=== PATIENT | female | born 1965 | race Caucasian/White ===

== ENCOUNTER 2018-04-07 07:49 | Day surgery (SDC) | payer BC ==
[2018-04-03 13:41] VITALS: BMI 24.0
--- NOTE | 2018-04-07 09:06 | HP ---
Admitting History and Physical - Admission History of Present Illness: patient is a 53-year-old female with a past medical history of schizoaffective disorder. Patient reports a recent hospitalization in December at [facility] for anibal. Patients present for ect this will be her first ect. She reports significant depression, patient denies any suicidal or homicidal ideation, visual or auditory hallucination. Patient reports compliance with prescribed medication. Patient denies any recent illnesses. History Source: Patient Limitations to Obtaining History: No Limitations - Past Medical History ...LMP: 04/06/18 - Smoking History Smoking history: Former smoker Have you smoked in the past 12 months: No If you are a former smoker, when did you quit?: 2007 - Alcohol/Substance Use Hx Alcohol Use: Yes History of Substance Use: reports: None - Social History Usual Living Arrangement: Yes: With Spouse ADL: Independent History of Recent Travel: No Home Medications - Allergies Allergies/Adverse Reactions: Allergies Allergy/AdvReac Type Severity Reaction Status Date / Time No Known Drug Allergies Allergy Verified 04/03/18 13:15 - Home Medications Home Medications: Ambulatory Orders Aripiprazole [Abilify -] 5 mg PO HS 04/03/18 Clonazepam [Klonopin] 1 mg PO HS 04/03/18 Dextroamphetamine/Amphetamine [Adderall Xr 20 mg Capsule] 20 mg PO BID 04/03/18 Lamotrigine [Lamictal -] 100 mg PO HS 04/03/18 Family Disease History - Family Disease History Family History: Denies Review of Systems - Review of Systems Constitutional: reports: No Symptoms Eyes: reports: No Symptoms HENT: reports: No Symptoms Neck: reports: No Symptoms Cardiovascular: reports: No Symptoms Respiratory: reports: No Symptoms Gastrointestinal: reports: No Symptoms Genitourinary: reports: No Symptoms Musculoskeletal: reports: No Symptoms Integumentary: reports: No Symptoms Neurological: reports: No Symptoms Endocrine: reports: No Symptoms Hematology/Lymphatic: reports: No Symptoms Psychiatric: reports: No Symptoms Physical Examination Vital Signs: Vital Signs Temperature 97.7 F 04/07/18 08:30 Pulse Rate 71 04/07/18 08:30 Respiratory Rate 20 04/07/18 08:30 Blood Pressure 111/69 04/07/18 08:30 O2 Sat by Pulse Oximetry (%) 100 04/07/18 08:30 Constitutional: Yes: Well Nourished, No Distress, Calm Eyes: Yes: WNL, Conjunctiva Clear, EOM Intact HENT: Yes: WNL, Atraumatic, Normocephalic Neck: Yes: WNL, Supple, Trachea Midline Cardiovascular: Yes: WNL, Regular Rate and Rhythm, S1, S2 Respiratory: Yes: WNL, Regular, CTA Bilaterally Gastrointestinal: Yes: WNL, Normal Bowel Sounds, Soft ...Rectal Exam: Yes: Deferred Renal/: Yes: WNL Musculoskeletal: Yes: WNL Extremities: Yes: WNL Edema: No Peripheral Pulses WNL: Yes Peripheral Pulses: Left Radial: 4+, Right Radial: 4+, Left Doralis Pedis: 3+, Right Dorsalis Pedis: 3+, Left Femoral: 3+, Right Femoral: 3+ Integumentary: Yes: WNL Neurological: Yes: WNL, Alert, Oriented ...Motor Strength: WNL Psychiatric: Yes: WNL, Alert, Oriented Labs: 02/07/2018 Imaging - Results EKG: Image Reviewed, Other (nsr) Assessment/Plan patient is a 53 y/o female, that presents for ect labs and ekg reviewed patient is medically optimized for procedure
[2018-04-07] MEDS ORDERED: KETAMINE HCL 500 MG/10 ML VIAL ONE (09:44)
[2018-04-07 10:46] VITALS: TEMP 98.4
[2018-04-07 11:25] VITALS: BP 112/70; PULSE 76
--- NOTE | 2018-04-07 13:59 | EKG ---
Test Reason : Blood Pressure : / mmHG Vent. Rate : 073 BPM Atrial Rate : 073 BPM P-R Int : 148 ms QRS Dur : 084 ms QT Int : 404 ms P-R-T Axes : 071 069 067 degrees QTc Int : 445 ms NORMAL SINUS RHYTHM CANNOT RULE OUT ANTERIOR INFARCT , AGE UNDETERMINED ABNORMAL ECG NO PREVIOUS ECGS AVAILABLE Confirmed by MEDHAT JETT MD ([id number]) on 04/07/2018 1:59:42 PM Referred By: Chemo Hartman Confirmed By:MEDHAT JETT MD
== END 2018-04-07 11:15 | disposition home or self-care (01) ==
LOC: FECT 07:49
PROVIDERS: ATTEND Psychiatry & Neurology Psychiatry
PROC: GZB4ZZZ Other Electroconvulsive Therapy (ICD-10-PCS; principal; 2018-04-07 08:30)
DX: F31.32 Bipolar disorder, current episode depressed, moderate (principal)
CPT/HCPCS: 84703; 90870; 93005; 94760

== ENCOUNTER 2018-04-10 05:44 | Day surgery (SDC) | payer BC ==
[2018-04-03 13:58] VITALS: BMI 24.0
[2018-04-10] MEDS ORDERED: KETAMINE HCL 500 MG/10 ML VIAL ONE (07:09)
[2018-04-10 08:13] VITALS: PULSE 74; TEMP 98.2
[2018-04-10 08:37] VITALS: BP 112/72
== END 2018-04-10 08:41 | disposition home or self-care (01) ==
LOC: FECT 05:44
PROVIDERS: ATTEND Psychiatry & Neurology Psychiatry
PROC: GZB4ZZZ Other Electroconvulsive Therapy (ICD-10-PCS; principal; 2018-04-10 07:30)
DX: F31.32 Bipolar disorder, current episode depressed, moderate (principal)
CPT/HCPCS: 90870; 94760

== ENCOUNTER 2018-04-14 05:37 | Day surgery (SDC) | payer BC ==
[2018-04-03 14:18] VITALS: BMI 24.0
[2018-04-14] MEDS ORDERED: KETAMINE HCL 500 MG/10 ML VIAL ONE (06:57)
[2018-04-14 08:09] VITALS: BP 110/65; PULSE 69; TEMP 98
== END 2018-04-14 08:10 | disposition home or self-care (01) ==
LOC: FECT 05:37
PROVIDERS: ATTEND Psychiatry & Neurology Psychiatry
PROC: GZB4ZZZ Other Electroconvulsive Therapy (ICD-10-PCS; principal; 2018-04-14 07:00)
DX: F31.32 Bipolar disorder, current episode depressed, moderate (principal)
CPT/HCPCS: 84703; 90870; 94760

== ENCOUNTER 2018-04-17 05:40 | Day surgery (SDC) | payer BC ==
[2018-04-05 09:29] VITALS: BMI 24.0
[2018-04-17] MEDS ORDERED: KETAMINE HCL 500 MG/10 ML VIAL ONE (07:17)
[2018-04-17 09:11] VITALS: BP 121/70; PULSE 84; TEMP 97.7
== END 2018-04-17 09:05 | disposition home or self-care (01) ==
LOC: FECT 05:40
PROVIDERS: ATTEND Psychiatry & Neurology Psychiatry
PROC: GZB4ZZZ Other Electroconvulsive Therapy (ICD-10-PCS; principal; 2018-04-17 07:00)
DX: F31.32 Bipolar disorder, current episode depressed, moderate (principal)
CPT/HCPCS: 90870; 94760

== ENCOUNTER → 2018-04-19 | Day surgery (SDC) | payer BC ==
[2018-04-05 09:43] VITALS: BMI 24.0
[~2018-04-19] MED LIST: KETAMINE HCL 500 MG/10 ML VIAL ONE
[2018-04-19 09:02] VITALS: BP 106/63; PULSE 60; TEMP 98.5
== END | disposition home or self-care (01) ==
LOC: FECT 05:44
PROVIDERS: ATTEND Psychiatry & Neurology Psychiatry
PROC: GZB4ZZZ Other Electroconvulsive Therapy (ICD-10-PCS; principal; 2018-04-19 07:30)
DX: F31.32 Bipolar disorder, current episode depressed, moderate (principal)
CPT/HCPCS: 84703; 90870; 94760

== ENCOUNTER 2018-04-24 05:42 | Day surgery (SDC) | payer BC ==
[2018-04-10 11:21] VITALS: BMI 24.0
[2018-04-24] MEDS ORDERED: KETAMINE HCL 500 MG/10 ML VIAL ONE (07:12)
[2018-04-24 08:10] VITALS: PULSE 88; TEMP 97.6
[2018-04-24 10:00] VITALS: BP 123/87
== END 2018-04-24 08:30 | disposition home or self-care (01) ==
LOC: FECT 05:42
PROVIDERS: ATTEND Psychiatry & Neurology Psychiatry
PROC: GZB4ZZZ Other Electroconvulsive Therapy (ICD-10-PCS; principal; 2018-04-24 07:00)
DX: F31.32 Bipolar disorder, current episode depressed, moderate (principal)
CPT/HCPCS: 84703; 90870; 94760

== ENCOUNTER 2018-04-26 05:38 | Day surgery (SDC) | payer BC ==
[2018-04-12 07:19] VITALS: BMI 24.0
[2018-04-26 06:32] VITALS: TEMP 98
[2018-04-26] MEDS ORDERED: KETAMINE HCL 500 MG/10 ML VIAL ONE (07:01)
[2018-04-26 08:25] VITALS: BP 118/74; PULSE 82
== END 2018-04-26 08:30 | disposition home or self-care (01) ==
LOC: FECT 05:38
PROVIDERS: ATTEND Psychiatry & Neurology Psychiatry
PROC: GZB4ZZZ Other Electroconvulsive Therapy (ICD-10-PCS; principal; 2018-04-26 07:00)
DX: F31.9 Bipolar disorder, unspecified (principal)
CPT/HCPCS: 90870; 94760

== ENCOUNTER 2018-04-28 05:43 | Day surgery (SDC) | payer BC ==
[2018-04-12 07:26] VITALS: BMI 24.0
[2018-04-28 06:34] VITALS: TEMP 98.4
[2018-04-28] MEDS ORDERED: KETAMINE HCL 500 MG/10 ML VIAL ONE (06:51)
[2018-04-28 08:33] VITALS: BP 133/83; PULSE 86
== END 2018-04-28 09:00 | disposition home or self-care (01) ==
LOC: FECT 05:43
PROVIDERS: ATTEND Psychiatry & Neurology Psychiatry
PROC: GZB4ZZZ Other Electroconvulsive Therapy (ICD-10-PCS; principal; 2018-04-28 07:00)
DX: F31.32 Bipolar disorder, current episode depressed, moderate (principal)
CPT/HCPCS: 84703; 90870; 94760

== ENCOUNTER 2018-05-03 05:42 | Day surgery (SDC) | payer BC ==
[2018-04-17 10:12] VITALS: BMI 24.0
[2018-05-03] MEDS ORDERED: KETAMINE HCL 500 MG/10 ML VIAL ONE (07:52)
[2018-05-03 09:06] VITALS: TEMP 97.7
[2018-05-03 09:34] VITALS: BP 108/69; PULSE 72
== END 2018-05-03 09:36 | disposition home or self-care (01) ==
LOC: FECT 05:42
PROVIDERS: ATTEND Psychiatry & Neurology Psychiatry
PROC: GZB4ZZZ Other Electroconvulsive Therapy (ICD-10-PCS; principal; 2018-05-03 07:00)
DX: F31.9 Bipolar disorder, unspecified (principal)
CPT/HCPCS: 84703; 90870; 94760

== ENCOUNTER 2018-05-05 05:44 | Day surgery (SDC) | payer BC ==
[2018-04-17 10:08] VITALS: BMI 24.0
[2018-05-05] MEDS ORDERED: KETAMINE HCL 500 MG/10 ML VIAL ONE (06:59)
[2018-05-05 08:27] VITALS: PULSE 82; TEMP 98.4
--- NOTE | 2018-05-05 08:42 | HP ---
CHIEF COMPLAINT: Depression PCP: Surrey Ryan HISTORY OF PRESENT ILLNESS: This is a 53-year-old female with a history of bipolar disorder being treated for depression with ECT. She feels that her symptoms are improving with treatment. PAST MEDICAL HISTORY: None Social History: , lives with . 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 Smoking: Former smoker, quit 2007. Alcohol: None Drugs: None Allergies No Known Drug Allergies Allergy (Verified 04/17/18 07:02) HOME MEDICATIONS: Home Medications Medication Instructions Recorded Aripiprazole [Abilify -] 5 mg PO HS 04/03/18 Clonazepam [Klonopin] 1 mg PO HS 04/03/18 Dextroamphetamine/Amphetamine 20 mg PO BID 04/03/18 [Adderall Xr 20 mg Capsule] Lamotrigine [LaMICtal -] 100 mg PO HS 04/03/18 Ibuprofen [Advil -] 800 mg PO TID 04/26/18 REVIEW OF SYSTEMS CONSTITUTIONAL: Absent: fever, chills, diaphoresis, generalized weakness, malaise, loss of appetite, weight change HEENT: Absent: rhinorrhea, nasal congestion, throat pain, throat swelling, difficulty swallowing, mouth swelling, ear pain, eye pain, visual changes CARDIOVASCULAR: Absent: chest pain, syncope, palpitations, irregular heart rate, lightheadedness , peripheral edema RESPIRATORY: Absent: cough, shortness of breath, dyspnea with exertion, orthopnea, wheezing, stridor, hemoptysis GASTROINTESTINAL: Absent: abdominal pain, abdominal distension, nausea, vomiting, diarrhea, constipation, melena, hematochezia GENITOURINARY: Absent: dysuria, frequency, urgency, hesitancy, hematuria, flank pain, genital pain MUSCULOSKELETAL: Absent: myalgia, arthralgia, joint swelling, back pain, neck pain SKIN: Absent: rash, itching, pallor HEMATOLOGIC/IMMUNOLOGIC: Absent: easy bleeding, easy bruising, lymphadenopathy, frequent infections ENDOCRINE: Absent: unexplained weight gain, unexplained weight loss, heat intolerance, cold intolerance NEUROLOGIC: Absent: headache, focal weakness or paresthesias, dizziness, unsteady gait, seizure, mental status changes, bladder or bowel incontinence PSYCHIATRIC: Depression Absent: no suicidal or homicidal ideation, hallucinations. PHYSICAL EXAMINATION Vital Signs - 24 hr 05/05/18 05/05/18 05/05/18 06:24 07:20 07:25 Temperature 97.7 F Pulse Rate 70 76 74 Respiratory 18 16 22 H Rate Blood Pressure 103/65 116/66 107/60 O2 Sat by Pulse 100 97 Oximetry (%) 05/05/18 05/05/18 05/05/18 07:30 07:35 07:50 Temperature Pulse Rate 79 79 78 Respiratory 21 H 20 11 Rate Blood Pressure 110/71 120/68 124/70 O2 Sat by Pulse 97 100 100 Oximetry (%) 05/05/18 05/05/18 08:03 08:19 Temperature 98.4 F Pulse Rate 78 82 Respiratory 11 16 Rate Blood Pressure 118/79 120/78 O2 Sat by Pulse 100 Oximetry (%) GENERAL: Awake, alert, and fully oriented, in no acute distress. HEAD: Normal with no signs of trauma. EYES: Pupils equal, round and reactive to light, extraocular movements intact, sclera anicteric, conjunctiva clear. No lid lag. EARS, NOSE, THROAT: Ears normal, nares patent, oropharynx clear without exudates. Moist mucous membranes. NECK: Normal range of motion, supple without lymphadenopathy, JVD, or masses. LUNGS: Breath sounds equal, clear to auscultation bilaterally. No wheezes, and no crackles. No accessory muscle use. HEART: Regular rate and rhythm, normal S1 and S2 without murmur, rub or gallop. ABDOMEN: Soft, nontender, not distended, normoactive bowel sounds, no guarding, no rebound, no masses. No hepatomegaly or splenomegaly. MUSCULOSKELETAL: Normal range of motion at all joints. No bony deformities or tenderness. No CVA tenderness. UPPER EXTREMITIES: 2+ pulses, warm, well-perfused. No cyanosis. No clubbing. No peripheral edema. LOWER EXTREMITIES: 2+ pulses, warm, well-perfused. No calf tenderness. No peripheral edema. NEUROLOGICAL: Cranial nerves II-XII intact. Normal speech. Normal gait. PSYCHIATRIC: Cooperative. Good eye contact. Appropriate mood and affect. SKIN: Warm, dry, normal turgor, no rashes or lesions noted, normal capillary refill. ASSESSMENT/PLAN: 53-year-old female with BPD being treated for depression with ECT. No recent medication changes. No reported problems with anesthesia. No cardiac history. Revised Cardiac Risk for Pre-Operative Risk: 0 points, 0.4% risk of major cardiac event. No neurosurgical history, no history of trauma. ECT is a low risk procedure. The relative benefits of the planned procedure outweigh the relative risks for this patient at this time. Visit type - Emergency Visit Emergency Visit: No - New Patient This patient is new to me today: Yes Date on this admission: 05/05/18 - Critical Care Critical Care patient: No
[2018-05-05] MEDS ORDERED: ONDANSETRON 4 MG/2 ML VIAL IVPUSH PRN (08:52)
[2018-05-05 08:53] VITALS: BP 112/59
[2018-05-05] MEDS ORDERED: LACTATED RINGERS SOLUTION 1,000 ML IV SCH (09:00)
== END 2018-05-05 08:50 | disposition home or self-care (01) ==
LOC: FECT 05:44
PROVIDERS: ATTEND Psychiatry & Neurology Psychiatry
PROC: GZB4ZZZ Other Electroconvulsive Therapy (ICD-10-PCS; principal; 2018-05-05 07:30)
DX: F31.9 Bipolar disorder, unspecified (principal)
CPT/HCPCS: 90870; 94760

== ENCOUNTER 2018-05-10 06:09 | Day surgery (SDC) | payer BC ==
[2018-05-05 15:31] VITALS: BMI 24.0
[2018-05-10] MEDS ORDERED: KETAMINE HCL 500 MG/10 ML VIAL ONE (07:16)
[2018-05-10 08:23] VITALS: TEMP 97.6
[2018-05-10 09:08] VITALS: BP 123/70; PULSE 76
== END 2018-05-10 09:15 | disposition home or self-care (01) ==
LOC: FECT 06:09
PROVIDERS: ATTEND Psychiatry & Neurology Psychiatry
PROC: GZB4ZZZ Other Electroconvulsive Therapy (ICD-10-PCS; principal; 2018-05-10 07:15)
DX: F31.9 Bipolar disorder, unspecified (principal)
CPT/HCPCS: 84703; 90870; 94760

== ENCOUNTER 2018-05-12 05:46 | Day surgery (SDC) | payer BC ==
[2018-05-12 06:48] VITALS: BMI 24.0
[2018-05-12] MEDS ORDERED: KETAMINE HCL 500 MG/10 ML VIAL ONE (07:04)
[2018-05-12 08:02] VITALS: PULSE 85
[2018-05-12 08:09] VITALS: TEMP 97.7
[2018-05-12 08:47] VITALS: BP 121/74
== END 2018-05-12 08:40 | disposition home or self-care (01) ==
LOC: FECT 05:46
PROVIDERS: ATTEND Psychiatry & Neurology Psychiatry
PROC: GZB4ZZZ Other Electroconvulsive Therapy (ICD-10-PCS; principal; 2018-05-12 07:30)
DX: F31.9 Bipolar disorder, unspecified (principal)
CPT/HCPCS: 90870; 94760

== ENCOUNTER 2018-05-16 05:45 | Day surgery (SDC) | payer BC ==
[2018-05-16 06:31] VITALS: BMI 24.0
[2018-05-16] MEDS ORDERED: KETAMINE HCL 500 MG/10 ML VIAL ONE (07:09)
[2018-05-16 08:13] VITALS: TEMP 97.5
[2018-05-16 08:40] VITALS: BP 107/67; PULSE 76
== END 2018-05-16 08:45 | disposition home or self-care (01) ==
LOC: FECT 05:45
PROVIDERS: ATTEND Psychiatry & Neurology Psychiatry
PROC: GZB4ZZZ Other Electroconvulsive Therapy (ICD-10-PCS; principal; 2018-05-16 08:30)
DX: F31.9 Bipolar disorder, unspecified (principal)
CPT/HCPCS: 84703; 90870; 94760

== ENCOUNTER 2018-05-19 05:41 | Day surgery (SDC) | payer BC ==
[2018-05-19 06:56] VITALS: TEMP 97.8; BMI 24.0
[2018-05-19] MEDS ORDERED: KETAMINE HCL 500 MG/10 ML VIAL ONE (07:11)
[2018-05-19 08:38] VITALS: BP 117/65; PULSE 78
[2018-05-19] MEDS ORDERED: ACETAMINOPHEN 325 MG TABLET (FP) PO PRN (08:38)
[2018-05-19] MEDS ORDERED: ONDANSETRON 4 MG/2 ML VIAL IVPUSH PRN (08:38)
[2018-05-19] MEDS ORDERED: LACTATED RINGERS SOLUTION 1,000 ML IV SCH (08:45)
== END 2018-05-19 08:49 | disposition home or self-care (01) ==
LOC: FECT 05:41
PROVIDERS: ATTEND Psychiatry & Neurology Psychiatry
PROC: GZB4ZZZ Other Electroconvulsive Therapy (ICD-10-PCS; principal; 2018-05-19 07:00)
DX: F31.9 Bipolar disorder, unspecified (principal)
CPT/HCPCS: 90870; 94760

== ENCOUNTER 2018-05-31 05:56 | Day surgery (SDC) | payer BC ==
[2018-05-29 12:10] VITALS: BMI 24.0
[2018-05-31 06:31] VITALS: TEMP 97.8
[2018-05-31] MEDS ORDERED: ONDANSETRON 4 MG/2 ML VIAL IVPUSH PRN (07:25)
[2018-05-31] MEDS ORDERED: LACTATED RINGERS SOLUTION 1,000 ML IV SCH (07:30)
[2018-05-31 08:36] VITALS: BP 111/71; PULSE 81
== END 2018-05-31 08:50 | disposition home or self-care (01) ==
LOC: FECT 05:56
PROVIDERS: ATTEND Psychiatry & Neurology Psychiatry
PROC: GZB4ZZZ Other Electroconvulsive Therapy (ICD-10-PCS; principal; 2018-05-31 08:00)
DX: F31.9 Bipolar disorder, unspecified (principal)
CPT/HCPCS: 90870; 94760

== ENCOUNTER 2018-06-02 05:44 | Day surgery (SDC) | payer BC ==
[2018-06-02 06:42] VITALS: TEMP 97.7; BMI 24.0
[2018-06-02] MEDS ORDERED: KETAMINE HCL 500 MG/10 ML VIAL ONE (07:21)
[2018-06-02 08:21] VITALS: PULSE 79
--- NOTE | 2018-06-02 08:52 | HP ---
CHIEF COMPLAINT: Bipolar Disorder PCP: Dr. Quintana [place] Primary Psychiatrist: Dr. Kelly [place] HISTORY OF PRESENT ILLNESS: 53 year-old female with a PMH significant for bipolar disorder. Patient began ECT in March 2018. She presents today for ECT. Recent Events: * None reported PAST MEDICAL HISTORY: Bipolar disorder PAST SURGICAL HISTORY: C-sections x 2 Appendectomy Allergies No Known Drug Allergies Allergy (Verified 05/29/18 06:49) HOME MEDICATIONS: Home Medications Medication Instructions Recorded Aripiprazole [Abilify -] 5 mg PO HS 04/03/18 Clonazepam [Klonopin] 1 mg PO HS 04/03/18 Dextroamphetamine/Amphetamine 20 mg PO BID 04/03/18 [Adderall Xr 20 mg Capsule] Lamotrigine [LaMICtal -] 100 mg PO HS 04/03/18 Ibuprofen [Advil -] 800 mg PO TID 04/26/18 Turmeric [Curcumin] 250 gm MC DAILY 05/31/18 REVIEW OF SYSTEMS CONSTITUTIONAL: Absent: fever, chills, diaphoresis, generalized weakness, malaise, loss of appetite, weight change HEENT: Absent: rhinorrhea, nasal congestion, throat pain, throat swelling, difficulty swallowing, mouth swelling, ear pain, eye pain, visual changes CARDIOVASCULAR: Absent: chest pain, syncope, palpitations, irregular heart rate, lightheadedness , peripheral edema RESPIRATORY: Absent: cough, shortness of breath, dyspnea with exertion, orthopnea, wheezing, stridor, hemoptysis GASTROINTESTINAL: Absent: abdominal pain, abdominal distension, nausea, vomiting, diarrhea, constipation, melena, hematochezia GENITOURINARY: Absent: dysuria, frequency, urgency, hesitancy, hematuria, flank pain, genital pain MUSCULOSKELETAL: Absent: myalgia, arthralgia, joint swelling, back pain, neck pain SKIN: Absent: rash, itching, pallor HEMATOLOGIC/IMMUNOLOGIC: Absent: easy bleeding, easy bruising, lymphadenopathy, frequent infections ENDOCRINE: Absent: unexplained weight gain, unexplained weight loss, heat intolerance, cold intolerance NEUROLOGIC: Absent: headache, focal weakness or paresthesias, dizziness, unsteady gait, seizure, mental status changes, bladder or bowel incontinence PHYSICAL EXAMINATION Vital Signs - 24 hr 06/02/18 06/02/18 06/02/18 06:35 07:43 07:45 Temperature 97.7 F Pulse Rate 67 70 76 Respiratory 16 20 22 H Rate Blood Pressure 115/84 111/60 107/69 O2 Sat by Pulse 100 99 98 Oximetry (%) GENERAL: Awake, alert, and fully oriented, in no acute distress. HEAD: Normal with no signs of trauma. EYES: Pupils equal, round and reactive to light, sclera anicteric, conjunctiva clear. LUNGS: Breath sounds equal, clear to auscultation bilaterally. No wheezes, and no crackles. No accessory muscle use. HEART: Regular rate and rhythm, normal S1 and S2 ABDOMEN: Soft, nontender, not distended MUSCULOSKELETAL: Normal range of motion at all joints. No bony deformities or tenderness. No CVA tenderness. UPPER EXTREMITIES: 2+ pulses, warm, well-perfused. No cyanosis. No clubbing. No peripheral edema. LOWER EXTREMITIES: 2+ pulses, warm, well-perfused. No calf tenderness. No peripheral edema. NEUROLOGICAL: Cranial nerves II-XII intact. Normal speech. Laboratory Results - last 24 hr 06/02/18 06:32 Urine HCG, Qual Negative ASSESSMENT/PLAN: 53 year-old female with a PMH significant for bipolar disorder. She presents today for ECT. Cardiac --no cardiac history --Revised Cardiac Risk Index for Pre-Operative Risk: 0 points, 0.4% risk of major cardiac event Pulmonary --no pulmonary history Neurological --no neurological or neurosurgical history; no history of trauma Anesthesia --no reported problems with anesthesia ECT is a low risk procedure. The relative benefits of the planned procedure outweigh the relative risks for this patient at this time. Visit type - Emergency Visit Emergency Visit: No - New Patient This patient is new to me today: Yes Date on this admission: 06/05/18 - Critical Care Critical Care patient: No
[2018-06-02 09:09] VITALS: BP 118/72
== END 2018-06-02 09:00 | disposition home or self-care (01) ==
LOC: FECT 05:44
PROVIDERS: ATTEND Psychiatry & Neurology Psychiatry
PROC: GZB4ZZZ Other Electroconvulsive Therapy (ICD-10-PCS; principal; 2018-06-02 07:30)
DX: F31.89 Other bipolar disorder (principal)
CPT/HCPCS: 84703; 90870; 94760

== ENCOUNTER 2018-06-06 05:49 | Day surgery (SDC) | payer BC ==
[2018-06-06 06:40] VITALS: BMI 24.0
[2018-06-06] MEDS ORDERED: KETAMINE HCL SYRINGES 150 MG/3 ML VIAL ONE (07:06)
[2018-06-06 08:16] VITALS: TEMP 97.6
[2018-06-06 08:48] VITALS: BP 117/81; PULSE 81
== END 2018-06-06 08:54 | disposition home or self-care (01) ==
LOC: FECT 05:49
PROVIDERS: ATTEND Psychiatry & Neurology Psychiatry
PROC: GZB4ZZZ Other Electroconvulsive Therapy (ICD-10-PCS; principal; 2018-06-06 07:30)
DX: F31.89 Other bipolar disorder (principal)
CPT/HCPCS: 84703; 90870; 94760

== ENCOUNTER 2018-06-09 05:49 | Day surgery (SDC) | payer BC ==
[2018-06-09 06:36] VITALS: BMI 24.0
[2018-06-09] MEDS ORDERED: KETAMINE HCL SYRINGES 150 MG/3 ML VIAL ONE (06:59)
[2018-06-09] MEDS ORDERED: LACTATED RINGERS SOLUTION 1,000 ML IV SCH (07:45)
[2018-06-09] MEDS ORDERED: ACETAMINOPHEN 325 MG TABLET (FP) PO PRN (07:45)
[2018-06-09] MEDS ORDERED: ONDANSETRON 4 MG/2 ML VIAL IVPUSH PRN (07:45)
[2018-06-09 08:27] VITALS: TEMP 98
[2018-06-09 08:28] VITALS: BP 122/72; PULSE 87
== END 2018-06-09 08:55 | disposition home or self-care (01) ==
LOC: FECT 05:49
PROVIDERS: ATTEND Psychiatry & Neurology Psychiatry
PROC: GZB4ZZZ Other Electroconvulsive Therapy (ICD-10-PCS; principal; 2018-06-09 07:30)
DX: F31.32 Bipolar disorder, current episode depressed, moderate (principal)
CPT/HCPCS: 90870; 94760

== ENCOUNTER 2018-06-13 05:45 | Day surgery (SDC) | payer BC ==
[2018-06-09 17:28] VITALS: BMI 24.0
[2018-06-13] MEDS ORDERED: ONDANSETRON 4 MG/2 ML VIAL IVPUSH PRN (06:41)
[2018-06-13 08:27] VITALS: TEMP 97.5
[2018-06-13 08:49] VITALS: BP 121/79; PULSE 71
== END 2018-06-13 08:45 | disposition home or self-care (01) ==
LOC: FECT 05:45
PROVIDERS: ATTEND Psychiatry & Neurology Psychiatry
PROC: GZB4ZZZ Other Electroconvulsive Therapy (ICD-10-PCS; principal; 2018-06-13 08:00)
DX: F31.89 Other bipolar disorder (principal)
CPT/HCPCS: 84703; 90870; 94760

== ENCOUNTER 2018-06-16 05:36 | Day surgery (SDC) | payer BC ==
[2018-06-09 17:31] VITALS: BMI 24.0
[2018-06-16] MEDS ORDERED: KETAMINE HCL SYRINGES 150 MG/3 ML VIAL ONE (06:58)
[2018-06-16 07:59] VITALS: TEMP 97.9
[2018-06-16 08:37] VITALS: BP 106/78; PULSE 78
== END 2018-06-16 09:17 | disposition home or self-care (01) ==
LOC: FECT 05:36
PROVIDERS: ATTEND Psychiatry & Neurology Psychiatry
PROC: GZB4ZZZ Other Electroconvulsive Therapy (ICD-10-PCS; principal; 2018-06-16 07:15)
DX: F31.89 Other bipolar disorder (principal)
CPT/HCPCS: 90870; 94760

== ENCOUNTER 2018-06-19 05:52 | Day surgery (SDC) | payer BC ==
[2018-06-19 06:58] VITALS: TEMP 97.8; BMI 24.0
[2018-06-19] MEDS ORDERED: REFRIGERATED ANITBIOTICS ONE ×2 (07:28→07:43)
[2018-06-19] MEDS ORDERED: KETAMINE HCL 500 MG/10 ML VIAL ONE (07:40)
[2018-06-19 08:58] VITALS: BP 120/72; PULSE 79
== END 2018-06-19 08:58 | disposition home or self-care (01) ==
LOC: FECT 05:52
PROVIDERS: ATTEND Psychiatry & Neurology Psychiatry
PROC: GZB4ZZZ Other Electroconvulsive Therapy (ICD-10-PCS; principal; 2018-06-19 09:00)
DX: F31.62 Bipolar disorder, current episode mixed, moderate (principal)
CPT/HCPCS: 84703; 90870; 94760

== ENCOUNTER 2018-06-23 05:43 | Day surgery (SDC) | payer BC ==
[2018-06-23 06:46] VITALS: TEMP 98.1; BMI 24.0
[2018-06-23] MEDS ORDERED: KETAMINE HCL SYRINGES 150 MG/3 ML VIAL ONE (06:57)
[2018-06-23 08:45] VITALS: BP 118/75; PULSE 79
== END 2018-06-23 08:35 | disposition home or self-care (01) ==
LOC: FECT 05:43
PROVIDERS: ATTEND Psychiatry & Neurology Psychiatry
PROC: GZB4ZZZ Other Electroconvulsive Therapy (ICD-10-PCS; principal; 2018-06-23 07:15)
DX: F31.62 Bipolar disorder, current episode mixed, moderate (principal)
CPT/HCPCS: 84703; 90870; 94760

== ENCOUNTER 2018-06-26 06:03 | Day surgery (SDC) | payer BC ==
[2018-06-26 06:40] VITALS: BMI 24.9
[2018-06-26] MEDS ORDERED: KETAMINE HCL 500 MG/10 ML VIAL ONE (07:12)
[2018-06-26] MEDS ORDERED: ACETAMINOPHEN 500 MG TABLET (FP) PO PRN (07:35)
[2018-06-26] MEDS ORDERED: PROMETHAZINE HCL 25 MG/1 ML VIAL IVPUSH PRN (07:35)
[2018-06-26] MEDS ORDERED: LACTATED RINGERS SOLUTION 1,000 ML IV SCH (07:45)
[2018-06-26 08:18] VITALS: TEMP 98.4
[2018-06-26 08:36] VITALS: BP 122/76; PULSE 74
== END 2018-06-26 09:15 | disposition home or self-care (01) ==
LOC: FECT 06:03
PROVIDERS: ATTEND Psychiatry & Neurology Psychiatry
PROC: GZB4ZZZ Other Electroconvulsive Therapy (ICD-10-PCS; principal; 2018-06-26 07:45)
DX: F31.62 Bipolar disorder, current episode mixed, moderate (principal)
CPT/HCPCS: 90870; 94760

== ENCOUNTER 2018-06-29 05:54 | Day surgery (SDC) | payer BC ==
[2018-06-26 08:23] VITALS: BMI 24.9
[2018-06-29 06:47] VITALS: TEMP 98
--- NOTE | 2018-06-29 07:52 | HP ---
CHIEF COMPLAINT: Bipolar Disorder PCP: Dr. Quintana [place] Primary Psychiatrist: Dr. Kelly [place] HISTORY OF PRESENT ILLNESS: 53 year-old female with a PMH significant for bipolar disorder. Patient began ECT in March 2018. She presents today for ECT. Recent Events: * None reported PAST MEDICAL HISTORY: Bipolar disorder PAST SURGICAL HISTORY: C-sections x 2 Appendectomy Allergies No Known Drug Allergies Allergy (Verified 06/26/18 08:17) HOME MEDICATIONS: Home Medications Medication Instructions Recorded Aripiprazole [Abilify -] 5 mg PO HS 04/03/18 Clonazepam [Klonopin] 1 mg PO HS 04/03/18 Dextroamphetamine/Amphetamine 20 mg PO BID 04/03/18 [Adderall Xr 20 mg Capsule] Lamotrigine [LaMICtal -] 100 mg PO HS 04/03/18 Ibuprofen [Advil -] 600 mg PO HS 04/26/18 Turmeric [Curcumin] 250 gm MC HS 05/31/18 REVIEW OF SYSTEMS CONSTITUTIONAL: Absent: fever, chills, diaphoresis, generalized weakness, malaise, loss of appetite, weight change HEENT: Absent: rhinorrhea, nasal congestion, throat pain, throat swelling, difficulty swallowing, mouth swelling, ear pain, eye pain, visual changes CARDIOVASCULAR: Absent: chest pain, syncope, palpitations, irregular heart rate, lightheadedness , peripheral edema RESPIRATORY: Absent: cough, shortness of breath, dyspnea with exertion, orthopnea, wheezing, stridor, hemoptysis GASTROINTESTINAL: Absent: abdominal pain, abdominal distension, nausea, vomiting, diarrhea, constipation, melena, hematochezia GENITOURINARY: Absent: dysuria, frequency, urgency, hesitancy, hematuria, flank pain, genital pain MUSCULOSKELETAL: Absent: myalgia, arthralgia, joint swelling, back pain, neck pain SKIN: Absent: rash, itching, pallor HEMATOLOGIC/IMMUNOLOGIC: Absent: easy bleeding, easy bruising, lymphadenopathy, frequent infections ENDOCRINE: Absent: unexplained weight gain, unexplained weight loss, heat intolerance, cold intolerance NEUROLOGIC: Absent: headache, focal weakness or paresthesias, dizziness, unsteady gait, seizure, mental status changes, bladder or bowel incontinence PHYSICAL EXAMINATION Vital Signs - 24 hr 06/29/18 06/29/18 06/29/18 06:44 07:17 07:23 Temperature 98.0 F Pulse Rate 86 88 89 Respiratory 18 21 H 18 Rate Blood Pressure 91/57 L 140/86 119/67 O2 Sat by Pulse 98 98 96 Oximetry (%) 06/29/18 06/29/18 06/29/18 07:27 07:33 07:40 Temperature 98.0 F Pulse Rate 90 85 85 Respiratory 18 16 16 Rate Blood Pressure 119/72 116/71 116/71 O2 Sat by Pulse 97 97 Oximetry (%) GENERAL: Awake, alert, and fully oriented, in no acute distress. HEAD: Normal with no signs of trauma. EYES: Pupils equal, round and reactive to light, sclera anicteric, conjunctiva clear. LUNGS: Breath sounds equal, clear to auscultation bilaterally. No wheezes, and no crackles. No accessory muscle use. HEART: Regular rate and rhythm, normal S1 and S2 ABDOMEN: Soft, nontender, not distended MUSCULOSKELETAL: Normal range of motion at all joints. No bony deformities or tenderness. No CVA tenderness. UPPER EXTREMITIES: 2+ pulses, warm, well-perfused. No cyanosis. No clubbing. No peripheral edema. LOWER EXTREMITIES: 2+ pulses, warm, well-perfused. No calf tenderness. No peripheral edema. NEUROLOGICAL: Cranial nerves II-XII intact. Normal speech. Laboratory Results - last 24 hr 06/29/18 06:31 Urine HCG, Qual Negative ASSESSMENT/PLAN: 53 year-old female with a PMH significant for bipolar disorder. She presents today for ECT. Cardiac --no cardiac history --Revised Cardiac Risk Index for Pre-Operative Risk: 0 points, 0.4% risk of major cardiac event Pulmonary --no pulmonary history Neurological --no neurological or neurosurgical history; no history of trauma Anesthesia --no reported problems with anesthesia ECT is a low risk procedure. The relative benefits of the planned procedure outweigh the relative risks for this patient at this time. Visit type - Emergency Visit Emergency Visit: No - New Patient This patient is new to me today: Yes Date on this admission: 06/29/18 - Critical Care Critical Care patient: No
[2018-06-29 08:18] VITALS: BP 122/74; PULSE 79
== END 2018-06-29 08:20 | disposition home or self-care (01) ==
LOC: FECT 05:54
PROVIDERS: ATTEND Psychiatry & Neurology Psychiatry
PROC: GZB4ZZZ Other Electroconvulsive Therapy (ICD-10-PCS; principal; 2018-06-29 07:45)
DX: F31.9 Bipolar disorder, unspecified (principal)
CPT/HCPCS: 84703; 90870; 94760

== ENCOUNTER 2018-07-06 05:48 | Day surgery (SDC) | payer BC ==
[2018-07-06 07:02] VITALS: BMI 24.9
[2018-07-06] MEDS ORDERED: KETAMINE HCL SYRINGES 150 MG/3 ML ONE (07:24)
[2018-07-06 09:00] VITALS: BP 118/75; PULSE 80; TEMP 97.7
== END 2018-07-06 09:00 | disposition home or self-care (01) ==
LOC: FECT 05:48
PROVIDERS: ATTEND Psychiatry & Neurology Psychiatry
PROC: GZB4ZZZ Other Electroconvulsive Therapy (ICD-10-PCS; principal; 2018-07-06 08:30)
DX: F31.62 Bipolar disorder, current episode mixed, moderate (principal)
CPT/HCPCS: 84703; 90870; 94760

== ENCOUNTER 2018-07-14 05:42 | Day surgery (SDC) | payer BC ==
[2018-07-14 06:54] VITALS: BMI 24.9
[2018-07-14] MEDS ORDERED: KETAMINE HCL SYRINGES 150 MG/3 ML ONE (07:08)
[2018-07-14 08:21] VITALS: TEMP 97.7
[2018-07-14 08:40] VITALS: BP 107/67; PULSE 79
== END 2018-07-14 09:00 | disposition home or self-care (01) ==
LOC: FECT 05:42
PROVIDERS: ATTEND Psychiatry & Neurology Psychiatry
PROC: GZB4ZZZ Other Electroconvulsive Therapy (ICD-10-PCS; principal; 2018-07-14 07:00)
DX: F32.9 Major depressive disorder, single episode, unspecified (principal)
CPT/HCPCS: 84703; 90870; 94760

== ENCOUNTER → 2018-07-27 | Day surgery (SDC) | payer BC ==
[2018-07-14 11:22] VITALS: BMI 24.9
[~2018-07-27] MED LIST changes: -KETAMINE HCL 500 MG/10 ML VIAL ONE; +KETAMINE HCL SYRINGES 150 MG/3 ML ONE
[2018-07-27 06:47] VITALS: TEMP 97.7
[2018-07-27 08:36] VITALS: BP 124/76; PULSE 68
== END | disposition home or self-care (01) ==
LOC: FECT 07-20 05:57
PROVIDERS: ATTEND Psychiatry & Neurology Psychiatry
PROC: GZB4ZZZ Other Electroconvulsive Therapy (ICD-10-PCS; principal; 2018-07-27 07:00)
DX: F31.89 Other bipolar disorder (principal)
CPT/HCPCS: 81025; 90870; 94760

== ENCOUNTER 2018-08-04 05:43 | Day surgery (SDC) | payer BC ==
[2018-08-04 07:22] VITALS: BMI 24.0
--- NOTE | 2018-08-04 07:26 | HP ---
CHIEF COMPLAINT: Bipolar Disorder PCP: Dr. Quintana [place] Primary Psychiatrist: Dr. Kelly [place] HISTORY OF PRESENT ILLNESS: 53 year-old female with a PMH significant for bipolar disorder. Patient began ECT in March 2018. She presents today for ECT. Recent Events: * weaning off clonopin * working with pharmacist for OTC sleep aid PAST MEDICAL HISTORY: Bipolar disorder PAST SURGICAL HISTORY: C-sections x 2 Appendectomy Allergies No Known Drug Allergies Allergy (Verified 06/26/18 08:17) HOME MEDICATIONS: Home Medications Medication Instructions Recorded Aripiprazole [Abilify -] 5 mg PO HS 04/03/18 Clonazepam [Klonopin] 1 mg PO HS 04/03/18 Dextroamphetamine/Amphetamine 20 mg PO BID 04/03/18 [Adderall Xr 20 mg Capsule] Lamotrigine [LaMICtal -] 200 mg PO HS 04/03/18 Ibuprofen [Advil -] 600 mg PO HS 04/26/18 Turmeric [Curcumin] 250 gm MC HS 05/31/18 REVIEW OF SYSTEMS CONSTITUTIONAL: Absent: fever, chills, diaphoresis, generalized weakness, malaise, loss of appetite, weight change HEENT: Absent: rhinorrhea, nasal congestion, throat pain, throat swelling, difficulty swallowing, mouth swelling, ear pain, eye pain, visual changes CARDIOVASCULAR: Absent: chest pain, syncope, palpitations, irregular heart rate, lightheadedness , peripheral edema RESPIRATORY: Absent: cough, shortness of breath, dyspnea with exertion, orthopnea, wheezing, stridor, hemoptysis GASTROINTESTINAL: Absent: abdominal pain, abdominal distension, nausea, vomiting, diarrhea, constipation, melena, hematochezia GENITOURINARY: Absent: dysuria, frequency, urgency, hesitancy, hematuria, flank pain, genital pain MUSCULOSKELETAL: Absent: myalgia, arthralgia, joint swelling, back pain, neck pain SKIN: Absent: rash, itching, pallor HEMATOLOGIC/IMMUNOLOGIC: Absent: easy bleeding, easy bruising, lymphadenopathy, frequent infections ENDOCRINE: Absent: unexplained weight gain, unexplained weight loss, heat intolerance, cold intolerance NEUROLOGIC: Absent: headache, focal weakness or paresthesias, dizziness, unsteady gait, seizure, mental status changes, bladder or bowel incontinence PHYSICAL EXAMINATION Vital Signs - 24 hr 08/04/18 07:19 Temperature 97.8 F Pulse Rate 73 Respiratory 18 Rate Blood Pressure 94/59 L GENERAL: Awake, alert, and fully oriented, in no acute distress. HEAD: Normal with no signs of trauma. EYES: Pupils equal, round and reactive to light, sclera anicteric, conjunctiva clear. LUNGS: Breath sounds equal, clear to auscultation bilaterally. No wheezes, and no crackles. No accessory muscle use. HEART: Regular rate and rhythm, normal S1 and S2 ABDOMEN: Soft, nontender, not distended MUSCULOSKELETAL: Normal range of motion at all joints. No bony deformities or tenderness. No CVA tenderness. UPPER EXTREMITIES: 2+ pulses, warm, well-perfused. No cyanosis. No clubbing. No peripheral edema. LOWER EXTREMITIES: 2+ pulses, warm, well-perfused. No calf tenderness. No peripheral edema. NEUROLOGICAL: Cranial nerves II-XII intact. Normal speech. ASSESSMENT/PLAN: 53 year-old female with a PMH significant for bipolar disorder. She presents today for ECT. Cardiac --no cardiac history --Revised Cardiac Risk Index for Pre-Operative Risk: 0 points, 0.4% risk of major cardiac event Pulmonary --no pulmonary history Neurological --no neurological or neurosurgical history; no history of trauma Anesthesia --no reported problems with anesthesia ECT is a low risk procedure. The relative benefits of the planned procedure outweigh the relative risks for this patient at this time. Visit type - Emergency Visit Emergency Visit: No - New Patient This patient is new to me today: Yes Date on this admission: 08/04/18 - Critical Care Critical Care patient: No
[2018-08-04] MEDS ORDERED: KETAMINE HCL SYRINGES 150 MG/3 ML ONE (07:39)
[2018-08-04] MEDS ORDERED: ONDANSETRON 4 MG/2 ML VIAL IVPUSH PRN (08:49)
[2018-08-04] MEDS ORDERED: LACTATED RINGERS SOLUTION 1,000 ML IV SCH (09:00)
[2018-08-04 09:09] LABS: BASO % 1.4 % (0-2.0); EOS % 3.6 % (0-4.5); HEMATOCRIT 40.9 % (32.4-45.2); HEMOGLOBIN 13.8 GM/dl (10.7-15.3); LYMPH % 27.2 % (8-40); MCH 30.2 pg (25.7-33.7); MCHC 33.7 g/dl (32.0-36.0); MEAN CELL VOLUME 89.7 fl (80-96); MEAN PLT VOLUME 7.7 fl (7.5-11.1); MONO % 5.3 % (3.8-10.2); NEUT % 62.5 % (42.8-82.8); PLATELET COUNT 258 K/MM3 (134-434); RBC 4.56 M/mm3 (3.60-5.2); RDW 11.6 % (11.6-15.6); WHITE BLOOD COUNT 6.1 K/mm3 (4.0-10.8)
[2018-08-04 09:14] VITALS: BP 108/72; PULSE 67; TEMP 98
[2018-08-04 09:26] LABS: ALBUMIN 3.9 g/dl (3.4-5.0); ALK PHOS 62 U/L (45-117); ANION GAP 7 MMOL/L (8-16); BILIRUBIN,TOTAL 0.4 mg/dl (0.2-1); BLOOD UREA NITROGEN 13 mg/dl (7-18); CALCIUM 9.4 mg/dl (8.5-10); CHLORIDE 105 mmol/L (98-107); CO2 24 mmol/L (21-32); CREATININE 0.8 mg/dl (0.55-1.3); GLUCOSE,RANDOM 111 mg/dl (74-106); MAGNESIUM 1.9 mg/dL (1.8-2.4); POTASSIUM 4.6 mmol/L (3.5-5.1); SGOT/AST 23 U/L (15-37); SGPT/ALT 17 U/L (13-61); SODIUM 136 mmol/L (136-145); TOT PROT 6.6 g/dl (6.4-8.2)
== END 2018-08-04 09:15 | disposition home or self-care (01) ==
LOC: FECT 05:43
PROVIDERS: ATTEND Psychiatry & Neurology Psychiatry
PROC: GZB4ZZZ Other Electroconvulsive Therapy (ICD-10-PCS; principal; 2018-08-04 07:15)
DX: F31.89 Other bipolar disorder (principal)
CPT/HCPCS: 36415; 80053; 81025; 83735; 85025; 90870; 94760

== ENCOUNTER 2018-08-11 05:38 | Day surgery (SDC) | payer BC ==
[2018-08-07 11:48] VITALS: BMI 24.0
[2018-08-11] MEDS ORDERED: KETAMINE HCL SYRINGES 150 MG/3 ML ONE (07:12)
[2018-08-11 08:16] VITALS: PULSE 70; TEMP 97
[2018-08-11 09:24] VITALS: BP 99/68
[2018-08-11] MEDS ORDERED: ONDANSETRON 4 MG/2 ML VIAL IVPUSH PRN (09:58)
[2018-08-11] MEDS ORDERED: LACTATED RINGERS SOLUTION 1,000 ML IV SCH (10:00)
== END 2018-08-11 08:50 | disposition home or self-care (01) ==
LOC: FECT 05:38
PROVIDERS: ATTEND Psychiatry & Neurology Psychiatry
PROC: GZB4ZZZ Other Electroconvulsive Therapy (ICD-10-PCS; principal; 2018-08-11 07:00)
DX: F31.9 Bipolar disorder, unspecified (principal)
CPT/HCPCS: 90870; 94760

== ENCOUNTER 2018-08-25 05:44 | Day surgery (SDC) | payer BC ==
[2018-08-25 06:36] VITALS: BMI 24.0
[2018-08-25] MEDS ORDERED: KETAMINE HCL SYRINGES 150 MG/3 ML ONE (06:57)
[2018-08-25] MEDS ORDERED: ONDANSETRON 4 MG/2 ML VIAL IVPUSH PRN (07:51)
[2018-08-25] MEDS ORDERED: oxyCODONE HCL 5 MG TABLET PO PRN (07:51)
[2018-08-25 08:20] VITALS: TEMP 97.7
[2018-08-25 09:21] VITALS: BP 124/79; PULSE 72
== END 2018-08-25 08:45 | disposition home or self-care (01) ==
LOC: FECT 05:44
PROVIDERS: ATTEND Psychiatry & Neurology Psychiatry
PROC: GZB4ZZZ Other Electroconvulsive Therapy (ICD-10-PCS; principal; 2018-08-25 07:15)
DX: F31.89 Other bipolar disorder (principal)
CPT/HCPCS: 81025; 90870; 94760

== ENCOUNTER 2018-09-01 05:41 | Day surgery (SDC) | payer BC ==
[2018-08-28 14:41] VITALS: BMI 24.0
[2018-09-01] MEDS ORDERED: KETAMINE HCL SYRINGES 150 MG/3 ML ONE (07:03)
[2018-09-01 08:07] VITALS: TEMP 98.4
[2018-09-01 08:59] VITALS: BP 112/78; PULSE 72
--- NOTE | 2018-09-04 09:09 | HP ---
CHIEF COMPLAINT: Bipolar Disorder PCP: Dr. Quintana [place] Primary Psychiatrist: Dr. Kelly [place] HISTORY OF PRESENT ILLNESS: 53 year-old female with a PMH significant for bipolar disorder. Patient began ECT in March 2018. She presents today for ECT. Recent Events * none reported Allergies No Known Drug Allergies Allergy (Verified 08/28/18 14:39) HOME MEDICATIONS: Home Medications Medication Instructions Recorded Aripiprazole [Abilify -] 5 mg PO HS 04/03/18 Clonazepam [Klonopin] 1 mg PO HS 04/03/18 Dextroamphetamine/Amphetamine 20 mg PO BID 04/03/18 [Adderall Xr 20 mg Capsule] Lamotrigine [LaMICtal -] 200 mg PO HS 04/03/18 Ibuprofen [Advil -] 600 mg PO HS 04/26/18 Turmeric [Curcumin] 250 gm MC HS 05/31/18 REVIEW OF SYSTEMS CONSTITUTIONAL: Absent: fever, chills, diaphoresis, generalized weakness, malaise, loss of appetite, weight change HEENT: Absent: rhinorrhea, nasal congestion, throat pain, throat swelling, difficulty swallowing, mouth swelling, ear pain, eye pain, visual changes CARDIOVASCULAR: Absent: chest pain, syncope, palpitations, irregular heart rate, lightheadedness , peripheral edema RESPIRATORY: Absent: cough, shortness of breath, dyspnea with exertion, orthopnea, wheezing, stridor, hemoptysis GASTROINTESTINAL: Absent: abdominal pain, abdominal distension, nausea, vomiting, diarrhea, constipation, melena, hematochezia GENITOURINARY: Absent: dysuria, frequency, urgency, hesitancy, hematuria, flank pain, genital pain MUSCULOSKELETAL: Absent: myalgia, arthralgia, joint swelling, back pain, neck pain SKIN: Absent: rash, itching, pallor HEMATOLOGIC/IMMUNOLOGIC: Absent: easy bleeding, easy bruising, lymphadenopathy, frequent infections ENDOCRINE: Absent: unexplained weight gain, unexplained weight loss, heat intolerance, cold intolerance NEUROLOGIC: Absent: headache, focal weakness or paresthesias, dizziness, unsteady gait, seizure, mental status changes, bladder or bowel incontinence PHYSICAL EXAMINATION Vital Signs Temperature 98.4 F 09/01/18 09:00 Pulse Rate 72 09/01/18 09:00 Respiratory Rate 18 09/01/18 09:00 Blood Pressure 112/78 09/01/18 09:00 O2 Sat by Pulse Oximetry (%) 100 09/01/18 08:25 GENERAL: Awake, alert, and fully oriented, in no acute distress. HEAD: Normal with no signs of trauma. EYES: Pupils equal, round and reactive to light, sclera anicteric, conjunctiva clear. LUNGS: Breath sounds equal, clear to auscultation bilaterally. No wheezes, and no crackles. No accessory muscle use. HEART: Regular rate and rhythm, normal S1 and S2 ABDOMEN: Soft, nontender, not distended MUSCULOSKELETAL: Normal range of motion at all joints. No bony deformities or tenderness. No CVA tenderness. UPPER EXTREMITIES: 2+ pulses, warm, well-perfused. No cyanosis. No clubbing. No peripheral edema. LOWER EXTREMITIES: 2+ pulses, warm, well-perfused. No calf tenderness. No peripheral edema. NEUROLOGICAL: Cranial nerves II-XII intact. Normal speech. ASSESSMENT/PLAN: 53 year-old female with a PMH significant for bipolar disorder. She presents today for ECT. Cardiac --no cardiac history --Revised Cardiac Risk Index for Pre-Operative Risk: 0 points, 0.4% risk of major cardiac event Pulmonary --no pulmonary history Neurological --no neurological or neurosurgical history; no history of trauma Anesthesia --no reported problems with anesthesia ECT is a low risk procedure. The relative benefits of the planned procedure outweigh the relative risks for this patient at this time. Visit type - Emergency Visit Emergency Visit: No - New Patient This patient is new to me today: Yes Date on this admission: 09/04/18 - Critical Care Critical Care patient: No
== END 2018-09-01 08:30 | disposition home or self-care (01) ==
LOC: FECT 05:41
PROVIDERS: ATTEND Psychiatry & Neurology Psychiatry
PROC: GZB4ZZZ Other Electroconvulsive Therapy (ICD-10-PCS; principal; 2018-09-01 07:15)
DX: F31.62 Bipolar disorder, current episode mixed, moderate (principal)
CPT/HCPCS: 81025; 90870; 94760

== ENCOUNTER → 2018-09-08 | Day surgery (SDC) | payer BC ==
[2018-09-07 10:16] VITALS: BMI 24.0
[~2018-09-08] MED LIST changes: -KETAMINE HCL SYRINGES 150 MG/3 ML ONE; +LACTATED RINGERS SOLUTION 1,000 ML IV SCH; +ONDANSETRON 4 MG/2 ML VIAL IVPUSH PRN
[2018-09-08 08:28] VITALS: TEMP 97.9
[2018-09-08 08:55] VITALS: BP 112/70; PULSE 72
== END | disposition home or self-care (01) ==
LOC: FECT 05:41
PROVIDERS: ATTEND Psychiatry & Neurology Psychiatry
PROC: GZB4ZZZ Other Electroconvulsive Therapy (ICD-10-PCS; principal; 2018-09-08 07:15)
DX: F31.9 Bipolar disorder, unspecified (principal)
CPT/HCPCS: 81025; 90870; 94760

== ENCOUNTER 2018-09-15 05:47 | Day surgery (SDC) | payer BC ==
[2018-09-15 06:44] VITALS: BMI 24.0
[2018-09-15] MEDS ORDERED: KETAMINE HCL SYRINGES 150 MG/3 ML ONE (06:57)
[2018-09-15 08:18] VITALS: PULSE 72; TEMP 98.5
[2018-09-15 08:45] VITALS: BP 119/64
== END 2018-09-15 08:45 | disposition home or self-care (01) ==
LOC: FECT 05:47
PROVIDERS: ATTEND Psychiatry & Neurology Psychiatry
PROC: GZB4ZZZ Other Electroconvulsive Therapy (ICD-10-PCS; principal; 2018-09-15 07:15)
DX: F31.62 Bipolar disorder, current episode mixed, moderate (principal)
CPT/HCPCS: 81025; 90870; 94760

== ENCOUNTER 2018-09-22 05:40 | Day surgery (SDC) | payer BC ==
[2018-09-15 12:27] VITALS: BMI 24.0
[2018-09-22] MEDS ORDERED: KETAMINE HCL 500 MG/10 ML VIAL ONE (07:03)
[2018-09-22 08:07] VITALS: TEMP 97.8
[2018-09-22 08:43] VITALS: BP 104/47; PULSE 72
== END 2018-09-22 08:39 | disposition home or self-care (01) ==
LOC: FECT 05:40
PROVIDERS: ATTEND Psychiatry & Neurology Psychiatry
PROC: GZB4ZZZ Other Electroconvulsive Therapy (ICD-10-PCS; principal; 2018-09-22 07:00)
DX: F31.62 Bipolar disorder, current episode mixed, moderate (principal)
CPT/HCPCS: 81025; 90870; 94760

== ENCOUNTER 2018-09-27 05:40 | Day surgery (SDC) | payer BC ==
[2018-09-22 16:49] VITALS: BMI 24.0
[2018-09-27] MEDS ORDERED: ONDANSETRON 4 MG/2 ML VIAL IVPUSH PRN (07:48)
[2018-09-27] MEDS ORDERED: oxyCODONE HCL 5 MG TABLET PO PRN ×2 (07:48)
[2018-09-27 09:11] VITALS: TEMP 98.4
[2018-09-27 09:27] VITALS: PULSE 75
[2018-09-27 09:35] VITALS: BP 110/52
== END 2018-09-27 09:06 | disposition home or self-care (01) ==
LOC: FECT 05:40
PROVIDERS: ATTEND Psychiatry & Neurology Psychiatry
PROC: GZB4ZZZ Other Electroconvulsive Therapy (ICD-10-PCS; principal; 2018-09-27 07:15)
DX: F31.89 Other bipolar disorder (principal)
CPT/HCPCS: 81025; 90870; 94760

== ENCOUNTER 2018-10-13 05:40 | Day surgery (SDC) | payer BC ==
[2018-10-13 06:57] VITALS: BMI 24.0
[2018-10-13] MEDS ORDERED: IBUPROFEN 600 MG TABLET (FP) PO ONE ×3 (09:05→10:41)
[2018-10-13 09:17] VITALS: PULSE 77
[2018-10-13 09:34] VITALS: BP 127/70; TEMP 97.8
[2018-10-13] MEDS ORDERED: ONDANSETRON 4 MG/2 ML VIAL IVPUSH PRN ×2 (09:42→10:40)
[2018-10-13] MEDS ORDERED: LACTATED RINGERS SOLUTION 1,000 ML IV SCH (09:45)
[2018-10-13] MEDS ORDERED: PROMETHAZINE HCL 25 MG/1 ML VIAL IVPUSH PRN (10:40)
--- NOTE | 2018-10-13 13:37 | EKG ---
Test Reason : Blood Pressure : / mmHG Vent. Rate : 069 BPM Atrial Rate : 069 BPM P-R Int : 150 ms QRS Dur : 082 ms QT Int : 422 ms P-R-T Axes : 062 055 054 degrees QTc Int : 452 ms NORMAL SINUS RHYTHM WHEN COMPARED WITH ECG OF 07-APR-2018 09:19, NO SIGNIFICANT CHANGE WAS FOUND Confirmed by MEDHAT JETT MD ([id number]) on 10/13/2018 1:37:02 PM Referred By: Chemo Hartman Confirmed By:MEDHAT JETT MD
== END 2018-10-13 09:30 | disposition home or self-care (01) ==
LOC: FECT 05:40
PROVIDERS: ATTEND Psychiatry & Neurology Psychiatry
PROC: GZB4ZZZ Other Electroconvulsive Therapy (ICD-10-PCS; principal; 2018-10-13 07:15)
DX: F31.89 Other bipolar disorder (principal)
CPT/HCPCS: 81025; 90870; 93005; 94760

== ENCOUNTER 2018-10-20 05:44 | Day surgery (SDC) | payer BC ==
[2018-10-20 06:56] VITALS: BMI 24.0
[2018-10-20] MEDS ORDERED: KETAMINE HCL 500 MG/10 ML VIAL ONE (07:30)
[2018-10-20] MEDS ORDERED: ACETAMINOPHEN 325 MG TABLET (FP) PO PRN (08:25)
[2018-10-20] MEDS ORDERED: ONDANSETRON 4 MG/2 ML VIAL IVPUSH PRN (08:25)
[2018-10-20] MEDS ORDERED: LACTATED RINGERS SOLUTION 1,000 ML IV SCH (08:30)
[2018-10-20 08:38] VITALS: TEMP 97.9
[2018-10-20 08:57] VITALS: BP 122/73; PULSE 74
== END 2018-10-20 09:15 | disposition home or self-care (01) ==
LOC: FECT 05:44
PROVIDERS: ATTEND Psychiatry & Neurology Psychiatry
PROC: GZB4ZZZ Other Electroconvulsive Therapy (ICD-10-PCS; principal; 2018-10-20 07:30)
DX: F31.89 Other bipolar disorder (principal)
CPT/HCPCS: 81025; 90870; 94760

== ENCOUNTER 2018-10-25 05:50 | Day surgery (SDC) | payer BC | END 2018-10-25 09:15 | disposition home or self-care (01) | LOC: FECT 05:50 ==

== ENCOUNTER 2018-11-01 06:30 | Day surgery (SDC) | payer BC | END 2018-11-01 10:40 | disposition home or self-care (01) | LOC: FASU 06:30 ==